=== PATIENT | female | born 1945 | race Hispanic/Latino ===

== ENCOUNTER 2022-12-13 19:20 | Emergency (ER) | payer SELFPAY ==
[2022-12-13 20:02] LABS: Bacteria/HPF 2+ HPF (None Seen); Clarity Turbid (Clear); Glucose, Urine (Dipstick) Normal (Negative); Ketone, Urine Negative (Negative); Leukocyte 500 Leu/uL (Negative); Nitrite 1+ (Negative); Specific Gravity, Urine 1.005 (1.002-1.036); Squamous Epithelial 0-3 HPF (0-3); WBC/HPF Greater than 50 HPF (0-3)
[2022-12-13 23:05] LABS: Bilirubin 1+ (Negative); Protein, Urine (Dipstick) Negative (Neg-Trace)
[2022-12-13 23:06] LABS: Blood, Urine Trace (Negative); RBC/HPF 0-3 HPF (0-3)
[2022-12-13] MEDS ORDERED: Acetaminophen 500 MG TAB ONE (23:17)
== END 2022-12-13 23:25 | disposition home or self-care (01) ==
LOC: ERS 19:20
DX: N39.0 Urinary tract infection, site not specified (principal); E11.9 Type 2 diabetes mellitus without complications
CPT/HCPCS: 81003; 81015; 87086; 99283

== ENCOUNTER 2023-08-06 13:34 | Outpatient (CLI) | payer OTHER | END 2023-08-06 13:35 | disposition home or self-care (01) | LOC: BICCT 13:34 | PROVIDERS: ATTEND Student in an Organized Health Care Education/Training Program | DX: R91.8 Other nonspecific abnormal finding of lung field (principal); A31.0 Pulmonary mycobacterial infection | CPT/HCPCS: 71250 ==